=== PATIENT | male | born 1955 | race Caucasian/White ===

== ENCOUNTER 2019-08-01 16:06 | Day surgery (SDC) | payer MEDICARE ==
[2019-07-31 20:36] VITALS: BP 155/56; PULSE 58
[~2019-08-01] VITALS: Ht 180.3 cm; Wt 102.0 kg
[2019-08-01 16:35] VITALS: BP 134/83; PULSE 70; TEMP 98.5
[2019-08-01] MEDS ORDERED: COZAAR100 MG PO (16:46)
[2019-08-01] MEDS ORDERED: PRIL40 PO (16:47)
[2019-08-01] MEDS ORDERED: LIPITOR 10MG10 MG PO (16:47)
[2019-08-01] MEDS ORDERED: ASPIRIN 32325 MG/TAB PO (16:48)
--- NOTE | 2019-08-01 16:55 | NUR ---
Pt arrived to floor at approximately 1640, prepped for OR immedately. 20G started in LFA, with OR tubing. at bedside. Pt agreeable to surgery. Denies needs, transported down to OR via bed with OR staff and spouse. Will await return.
--- NOTE | 2019-08-01 19:35 | NUR ---
Report recieved from KADEN Fernandez. Patient arrived back to the unit from surgery to room 322 at this time. Patient is very anxious to go home due to having a [address] Patient is up to the restroom. Having a little bit of bleeding at the site of surgery. Patient requests a snack and water. Post op vitals being taken at this time.
[2019-08-01 19:43] VITALS: BP 147/92; PULSE 64
[2019-08-01 20:12] VITALS: BP 156/69; PULSE 55; TEMP 97.5
--- NOTE | 2019-08-01 20:30 | NUR ---
Patient tolerated the applesauce and water well. Patients vitals within normal limits. Discharge paperwork printed. IV taken out. Patient cleaned up and dressed. in room helping patient. Post op vitals all stable and patient ready for discharge. Paperwork signed. Patient given brief to wear home due to minor bleeding. Will be escorted out by staff when ready.
--- NOTE | 2019-08-01 21:00 | NUR ---
Patient escorted outside at this time by nursing staff.
== END 2019-08-01 21:00 | disposition home or self-care (01) ==
LOC: SURG 16:06 → SDCO 16:06 → SURG 16:37 → EDSTATUS 18:00 → SDCO 21:00 → SURG 21:00
DX: N20.2 Calculus of kidney with calculus of ureter (principal); Z88.1 Allergy status to other antibiotic agents; E78.5 Hyperlipidemia, unspecified; I10 Essential (primary) hypertension; Z79.82 Long term (current) use of aspirin; Z96.641 Presence of right artificial hip joint
CPT/HCPCS: OP; C1769; C1894; C2617; J0690; J1100; J1885; J2405; J2704; J3010; J7030; Q9967